=== PATIENT | male | born 1970 | race Caucasian/White ===

== ENCOUNTER 2017-06-19 15:18 | Emergency (ER) | payer MEDICAID, SELFPAY ==
[2017-06-19 15:20] VITALS: BP 134/85; PULSE 88; RESP 18; TEMP 37.3; O2SAT 98; BMI 33.8
[2017-06-19 15:36] LABS: Bedside Glucose 379 mg/dL (70-110)
--- NOTE | 2017-06-19 15:38 | EKG12_ITS ---
Test Reason : CP Blood Pressure : / mmHG Vent. Rate : 084 BPM Atrial Rate : 084 BPM P-R Int : 166 ms QRS Dur : 080 ms QT Int : 356 ms P-R-T Axes : 030 025 012 degrees QTc Int : 420 ms Normal sinus rhythm Normal ECG Confirmed by THANG LOMELI, AMANDO ([id number]), general expeditor LORIE PELLETIER ([id number]) on 06/20/2017 2:20:55 PM Referred By: ROBERT Confirmed By:AMANDO DESIR MD
--- NOTE | 2017-06-19 15:45 | ED.DCSUM_ITS ---
- ER Visit Summary Date of Service: 06/19/17 Chief Complaint: Fever and cough History of Present Illness: The patient is a [address] Garcia. Reports he has a fever and cough that began 5 days ago. He has not measured his temperature, but he has had subjective fever, chills, and sweats. He has a sore throat is 2 out of 10 severity. He has a nonproductive cough. Reports that he has chest pain on the right to begin 11:00 this morning. He describes it as a pressure. It is 4 out of 10 at worst and 3 out of 10 currently. It is increased with coughing. He reports that he has had a poor appetite and nausea. No abdominal pain, vomiting, or diarrhea. No dysuria or frequency. Patient complains of diffuse myalgias and generalized weakness. He has a headache that is 8 out of 10 severity. Patient is an insulin-dependent diabetic and has not taken his insulin for the past 3 days. Physical Examination: Vitals: Stable. Afebrile. General: Well-nourished and well-developed. Head: Normocephalic atraumatic. Neck: Supple, no lymphadenopathy. No JVD. Nontender. Cardiovascular: Regular rate and rhythm. No murmurs. Respiratory: No respiratory distress. Clear to auscultation bilaterally. Abdominal: Soft, nontender, nondistended, normal bowel sounds. No guarding, rebound, or peritoneal signs. Back: Nontender. Extremities: Nontender, no edema. Skin: Normal color, no rash. Neurologic: Alert and oriented ?3. Cranial nerves II through XII are intact. Normal strength and sensation. Psych: Normal affect. Test Results: CBC is remarkable for a white count of 3.9, hematocrit of 38.2, and platelets of 119. Chem-7 is more for glucose of 384, calcium of 8.3. Serum ketones are negative. Influenza is negative. Lactic acid is 2.1. Chest x-ray shows a poor inspiration and no acute disease. EKG is sinus at [address] changes. Emergency Department Course and Treatment: Patient is given Tylenol p.o. and 2 L of normal saline. He is resting comfortably. Treatment Plan: Patient will be discharged with Zofran and instructed to push fluids. Use his insulin as prescribed. Follow-up his primary care physician in 3-5 days if not improving. Disposition: To home in improved and stable condition. Impression: 1. URI. 2. Hyperglycemia with medication noncompliance. 3. Type 2 diabetes mellitus. This note was generated with [employer] dictation software. It may contain incorrect words, spelling, and punctuation that were not noted in review of the chart prior to signing ED Disposition - Plan for ED Patient: Chief Complaint: General Illness Instructions: ED Upper Resp Infec No Abx Tx Prescriptions: Ondansetron [Zofran Odt] 4 mg PO Q8H PRN PRN #10 tablet PRN Reason: Nausea Referrals: Doctor,Your [STAFF PHYSICIAN] - 3-5 Days if not improving
[2017-06-19] MEDS: Acetaminophen 500 MG Tablet 1000 MG PO (15:46)
[2017-06-19] MEDS: 0.9% Normal Saline 1,000 ML 999 ML IV ×2 (15:46→16:44)
[2017-06-19 16:22] LABS: Absolute Lymphocyte Count 1.48 X10^3/ul (0.83-4.51); Basophil# 0.01 X10^3/uL; Basophil% 0.3 % (0-1); Eosinophils% 2.6 % (0-5); Hematocrit 38.2 % (40-54); Hemoglobin 13.3 g/dl (13.0-16.5); Lymphocyte # 1.48 X10^3/ul (4.0); Lymphocyte % 38.4 % (19-41); Mean Corp Hgb Conc 34.8 g/gl (32-36); Mean Corpuscular Hgb 30.6 pg (27.0-32.0); Mean Corpuscular Volume 87.8 fL (80-94); Mean Platelet Vol. 9.8 fl (6.2-12.0); Monocyte% 7.8 % (0-10); Neutrophil # 1.96 X10^3/uL (2.7-7.7); Neutrophil % 50.9 % (47-70); Platelet Count 119 K/mm3 (150-450); RBC Distribution Width CV 12.4 % (11.6-14.6); Red Blood Count 4.35 M/mm3 (4.6-6.2); White Blood Count 3.9 K/mm3 (4.4-11.0)
[2017-06-19 16:28] LABS: POSITIVE COUNT NO; POSITIVE DIFFERENTIAL NO; POSITIVE MORPHOLOGY NO
[2017-06-19 16:33] LABS: Anion Gap 8 (5-15); BUN 7 mg/dL (7-18); BUN/Creat Ratio 9.4 RATIO (10-20); Calcium,Total 8.3 mg/dL (8.5-10.1); Chloride 104 mmol/L (98-107); Creatinine, Serum 0.75 mg/dL (0.70-1.30); EST Glomerular Filtration Rate 120 mL/min (>60); Est Glom Filt Rate - Afr Amer 145 mL/min (>60); Estimated Creatinine Clearance 143.09 ml/min; Glucose 384 mg/dL (74-106); Potassium 3.9 mmol/L (3.5-5.1); Sodium Level 137 mmol/L (136-145)
--- NOTE | 2017-06-19 16:35 | RAD_ITS ---
STUDY: X-RAY CHEST REASON FOR EXAM: Male, 47 years old. Cough TECHNIQUE: Frontal and lateral views of the chest were obtained. COMPARISON: None. FINDINGS: The lungs are underaerated. There are no focal airspace opacities. There is no demonstrated pleural abnormality. The cardiac silhouette is normal in size. The mediastinum and hilar regions are unremarkable. Normal visualized pulmonary arteries. Normal visualized aortic arch and descending thoracic aorta. There are diffuse degenerative changes of the visualized spine. There is mild S-shaped scoliosis of the thoracic spine. The visualized ribs, clavicles, and shoulders are unremarkable. There is no demonstrated abnormality of the visualized upper abdomen. RAD/Chest PA and Lateral IMPRESSION: There is no evidence of focal consolidation or pleural effusion. Electronically Signed: May Higgins MD at 16:56 EST Tel Direct: [phone], Service support ,
[2017-06-19 16:57] LABS: Lactic Acid 2.1 mmol/L (0.4-2.0)
[2017-06-19 17:21] VITALS: BP 135/79; PULSE 82; RESP 18
[2017-06-19 17:22] VITALS: BP 135/79; PULSE 85; RESP 18
[2017-06-19 17:25] VITALS: BP 135/76; PULSE 76; RESP 16; RESP 18; O2SAT 98
[2017-06-19 20:11] LABS: Reflex Lactate? Y
== END 2017-06-19 17:27 | disposition home or self-care (01) ==
PROVIDERS: Emergency Provider Emergency Medicine
DX: J06.9 Acute upper respiratory infection, unspecified (principal); E11.65 Type 2 diabetes mellitus with hyperglycemia; Z91.14 Patient's other noncompliance with medication regimen; Z79.4 Long term (current) use of insulin
CPT/HCPCS: 36415; 71046; 80048; 82009; 82962; 83605; 85025; 87040; 87804; 93005; 96360; 99285; J7030; A4216